=== PATIENT | male | born 1935 | race Caucasian/White ===

== ENCOUNTER → 2019-02-26 | Outpatient (CLI) | payer MEDICARE, OTHER ==
--- NOTE | 2019-02-26 14:29 | RADIOLOGY REPORT (SQ) ---
EXAM DESCRIPTION: NM PARATHYROID IMAGING COMPLETED DATE/TIME: 02/26/2019 2:15 pm REASON FOR STUDY: E83.52 HYPERCALCEMIA E83.52 HYPERCALCEMIA COMPARISON: 04/09/2015 RADIONUCLIDE AND DOSE: 21.6 millicuries Tc-99m Sestamibi. The route of agent administration: Intravenous ADDITIONAL DRUGS AND DOSES: None. TECHNIQUE: Early and delayed images of the neck acquired following radionuclide administration. LIMITATIONS: None. FINDINGS: Thyroid: Normal size. Homogeneous activity. Normal washout. No focal lesions. Parathyroid: There is retained activity at the inferior margin of the left lobe of the thyroid gland. 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 Other: No other significant findings. 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 Similar findings were noted in 2014. TECHNICAL DOCUMENTATION: JOB ID: [id number] [employer]- All Rights Reserved Reading location - IP/workstation name: [email or web address]
== END ==
LOC: RAD 10:00
PROVIDERS: ATTEND Internal Medicine Endocrinology, Diabetes & Metabolism
DX: E83.52 Hypercalcemia (principal); D49.7 Neoplasm of unspecified behavior of endocrine glands and other parts of nervous system; E21.5 Disorder of parathyroid gland, unspecified
CPT/HCPCS: 78070; A9500; Q9969